=== PATIENT | female | born 1940 | race African-American/Black ===

== ENCOUNTER 2017-07-30 16:06 | Inpatient (IN) | payer OTHER ==
[2017-07-30] MEDS: AZITHROMYCIN 250 MG TABLET. PO (18:13)
[2017-07-30] MEDS: ENOXAPARIN 30 MG/0.3 ML SYRINGE. SQ (18:14)
[2017-07-30] MEDS: amLODIPine BESYLATE 5 MG TABLET PO (18:14)
[2017-07-30 18:54] LABS: INFLUENZA A PATIENT NEGATIVE (NEGATIVE); INFLUENZA B PATIENT NEGATIVE (NEGATIVE); OBC FLU VALID
[2017-07-30 19:16] LABS: ADD MAN DIFF? NO
[2017-07-30 19:18] LABS: BASO % 1 % (0-3); EOS % 0 % (0-3); HEMATOCRIT 42.3 % (36.0-47.0); HEMOGLOBIN 13.7 g/dL (12.0-15.5); LYMPH # 0.8 x10^3/uL (1.0-4.8); LYMPH % 16 % (24-48); MEAN CORPUSCULAR HEMOGLOBIN 26 pg (25-35); MEAN CORPUSCULAR HGB CONC 32 g/dL (31-37); MEAN CORPUSCULAR VOLUME 80 fL (79-100); MONO # 0.6 x10^3/uL (0.0-1.1); MONO % 11 % (0-9); NEUT # 3.8 x10^3uL (1.8-7.7); NEUT % 72 % (31-73); PLATELET COUNT 234 x10^3/uL (140-400); RED BLOOD COUNT 5.31 x10^6/uL (3.50-5.40); WHITE BLOOD COUNT 5.3 x10^3/uL (4.0-11.0)
[2017-07-30] MEDS: IPRATRPIUM/ALBUTEROL 0.5/2.5MG 3 ML NEBU. NEB (19:22)
[2017-07-30 19:32] LABS: ALBUMIN 3.4 g/dL (3.4-5.0); ALBUMIN/GLOBULIN RATIO 0.7 (1.0-1.7); ALK PHOS 147 U/L (46-116); ALT (SGPT) 34 U/L (14-59); ANION GAP 11 (6-14); AST (SGOT) 32 U/L (15-37); BLOOD UREA NITROGEN 25 mg/dL (7-20); BUN/CREATININE RATIO 23 (6-20); CARBON DIOXIDE 27 mmol/L (21-32); CHLORIDE 99 mmol/L (98-107); CREATININE 1.1 mg/dL (0.6-1.0); GFR 58.6; GLUCOSE 142 mg/dL (70-99); POTASSIUM 3.6 mmol/L (3.5-5.1); SODIUM 137 mmol/L (136-145); TOTAL BILIRUBIN 0.3 mg/dL (0.2-1.0)
[2017-07-30] MEDS: ATORVASTATIN CALCIUM 20 MG TABLET PO (20:40)
[2017-07-30] MEDS: DONEPEZIL HCL 10 MG TABLET. PO (20:40)
[2017-07-30] MEDS: cefTRIAXone IV Push 1 GM VIAL. IVP (22:21)
[2017-07-30] MEDS: POTASSIUM CL 20MEQ D5-0.45NACL 1,000 ML IV (22:21)
[2017-07-31] MEDS: IPRATRPIUM/ALBUTEROL 0.5/2.5MG 3 ML NEBU. NEB ×4 (07:23→18:24)
[2017-07-31] MEDS: amLODIPine BESYLATE 5 MG TABLET PO (09:50)
[2017-07-31] MEDS: POTASSIUM CL 20MEQ D5-0.45NACL 1,000 ML IV (09:56)
[2017-07-31 12:55] LABS: BILIRUBIN,URINE NEGATIVE (NEG); CLARITY,URINE CLEAR; COLOR,URINE YELLOW; GLUCOSE,URINE NEGATIVE (NEG); NITRITE,URINE NEGATIVE (NEG); PROTEIN,URINE NEGATIVE (NEG-TRACE); UROBILINOGEN,URINE 0.2 mg/dL (0.2 mg/dL)
[2017-07-31 13:19] LABS: BACTERIA,URINE 0 /HPF (0-FEW); RBC,URINE 0 /HPF (0-2); SQUAMOUS EPITHELIAL CELL,UR FEW /LPF; WBC,URINE OCC /HPF (0-4)
[2017-07-31] MEDS: cefTRIAXone IV Push 1 GM VIAL. IVP (17:42)
[2017-07-31] MEDS: AZITHROMYCIN 250 MG TABLET. PO (17:46)
[2017-07-31] MEDS: ENOXAPARIN 40 MG/0.4 ML SYRINGE. SQ (17:46)
[2017-07-31] MEDS: DONEPEZIL HCL 10 MG TABLET. PO (20:24)
[2017-07-31] MEDS: ATORVASTATIN CALCIUM 20 MG TABLET PO (20:24)
[2017-08-01] MEDS: POTASSIUM CL 20MEQ D5-0.45NACL 1,000 ML IV ×2 (00:14→12:32)
[2017-08-01 05:06] LABS: ANION GAP 10 (6-14); BLOOD UREA NITROGEN 10 mg/dL (7-20); CALCIUM 8.1 mg/dL (8.5-10.1); CARBON DIOXIDE 24 mmol/L (21-32); CHLORIDE 104 mmol/L (98-107); CREATININE 0.7 mg/dL (0.6-1.0); GFR 98.7; GLUCOSE 121 mg/dL (70-99); HEMOGLOBIN 12.2 g/dL (12.0-15.5); MEAN CORPUSCULAR HEMOGLOBIN 26 pg (25-35); MEAN CORPUSCULAR HGB CONC 32 g/dL (31-37); MEAN CORPUSCULAR VOLUME 80 fL (79-100); PLATELET COUNT 224 x10^3/uL (140-400); RED BLOOD COUNT 4.74 x10^6/uL (3.50-5.40); RED CELL DISTRIBUTION WIDTH 15.5 % (11.5-14.5); SODIUM 138 mmol/L (136-145); WHITE BLOOD COUNT 3.1 x10^3/uL (4.0-11.0)
[2017-08-01] MEDS: IPRATRPIUM/ALBUTEROL 0.5/2.5MG 3 ML NEBU. NEB ×4 (07:38→19:23)
[2017-08-01] MEDS: amLODIPine BESYLATE 5 MG TABLET PO (08:47)
[2017-08-01] MEDS: AZITHROMYCIN 250 MG TABLET. PO (18:02)
[2017-08-01] MEDS: cefTRIAXone IV Push 1 GM VIAL. IVP (18:02)
[2017-08-01] MEDS: ENOXAPARIN 40 MG/0.4 ML SYRINGE. SQ (18:02)
[2017-08-01] MEDS: ATORVASTATIN CALCIUM 20 MG TABLET PO (21:19)
[2017-08-01] MEDS: DONEPEZIL HCL 10 MG TABLET. PO (21:19)
[2017-08-01] MEDS: LACTOBACILLUS RHAMNOSUS GG 1 CAPSULE. PO (21:19)
[2017-08-01] MEDS: ACETAMINOPHEN 325 MG TABLET. PO (21:31)
[2017-08-02] MEDS: POTASSIUM CL 20MEQ D5-0.45NACL 1,000 ML IV (02:30)
[2017-08-02] MEDS: IPRATRPIUM/ALBUTEROL 0.5/2.5MG 3 ML NEBU. NEB ×2 (07:58→11:19)
[2017-08-02] MEDS: LACTOBACILLUS RHAMNOSUS GG 1 CAPSULE. PO (09:18)
[2017-08-02] MEDS: amLODIPine BESYLATE 5 MG TABLET PO (09:18)
[2017-08-02] MEDS ORDERED: ASPIRIN ENTERIC COATED 81 MG TABLET.DR. PO (10:00)
[2017-08-02] MEDS ORDERED: LOSARTAN POTASSIUM 50 MG TABLET. PO (10:00)
== END 2017-08-02 14:30 | DRG 641 ==
LOC: 5 SOUTH 16:06
DX: E86.0 Dehydration (principal); F03.90 Unspecified dementia, unspecified severity, without behavioral disturbance, psychotic disturbance, mood disturbance, and anxiety; E78.5 Hyperlipidemia, unspecified; J40 Bronchitis, not specified as acute or chronic; J11.1 Influenza due to unidentified influenza virus with other respiratory manifestations; I10 Essential (primary) hypertension; M81.0 Age-related osteoporosis without current pathological fracture; Z82.49 Family history of ischemic heart disease and other diseases of the circulatory system; Z83.3 Family history of diabetes mellitus
CPT/HCPCS: 36415; 71045; 80048; 80053; 81001; 85025; 85027; 87040; 87070; 87205; 87804; 87804-59; 94640; 94760; 97162-GP; 97530-GP; J0696; J1650; J7620; Q0144